=== PATIENT | female | born 1995 | race Caucasian/White ===

== ENCOUNTER → 2023-05-15 | Outpatient (CLI) | payer OTHER ==
--- NOTE | 2023-05-15 09:12 | CT ---
EXAMINATION TYPE: CT sinus w con DATE OF EXAM: 05/15/2023 COMPARISON: None HISTORY: Left sided cheek swelling x2 months, no pain per patient. CT DLP: 616 mGycm CONTRAST: 100ml mL of Isovue 300 The paranasal sinuses are examined in the axial plane at 2 mm thick sections. Reconstructed images i n the coronal plane were obtained. There may be some subtle asymmetry between the soft tissue thickness on the left compared to the righ t slightly more prominent left cheek soft tissue. No underlying masses or other abnormality however i s evident. Maxillary spine is intact. Nasal bones appear intact. Orbits appear unremarkable. The maxillary sinuses are clear. The ethmoid air cells are clear. The sphenoid sinuses are clear. The frontal sinuses are clear. Mastoid air cells as visualized appear normal. The septum is evaluated. There is septal deviation to the left. The ostiomeatal units are patent. IMPRESSION: 1. Subtle asymmetry of the soft tissue thickness slightly more prominent on the left. No underlying radiographic abnormality is evident.
== END | disposition home or self-care (01) ==
LOC: RADCTMAIN 07:21
PROVIDERS: ATTEND Otolaryngology
DX: J34.89 Other specified disorders of nose and nasal sinuses (principal); R22.0 Localized swelling, mass and lump, head
CPT/HCPCS: 70487; Q9967